=== PATIENT | male | born 1980 ===

== ENCOUNTER 2018-05-28 12:12 | Outpatient (CLI) | payer SELFPAY ==
--- NOTE | 2018-05-28 13:05 | XRay Report ---
XRAY LUMBAR SPINE THREE VIEWS: 05/28/18 12:12:00 CLINICAL: Low back pain. FINDINGS: Six lumbar vertebra and mild lower lumbar levoscoliosis. Mild anterior wedging of T12 and L1 with no fracture lines identified. The rest of the bodies are normal in height. The disc spaces are normal. Mild lower lumbar facet joint disease. The pedicles are intact. Normal soft tissues. IMPRESSION: Mild scoliosis and mild lower lumbar facet joint disease. Age-indeterminate mild anterior wedge compression fractures of T12 and L1. MRI would be more definitive than dating these fractures.
== END 2018-05-28 12:13 | disposition home or self-care (01) ==
LOC: SPVIMAG 12:12
PROVIDERS: ATTEND Family Medicine
DX: M41.86 Other forms of scoliosis, lumbar region (principal)
CPT/HCPCS: 72100